=== PATIENT | male | born 1935 | race African-American/Black ===

== ENCOUNTER 2016-08-23 06:13 | Day surgery (SDC) | payer MEDICARE, OTHER ==
--- NOTE | ~2016-08-23 | EGD ---
EGD REPORT [facility] [address] [place] [address] NAME: TAMMY REYES : [birth year] STATUS : REG [facility]#: [id number] AGE: 81 ADM/REG DATE : 08/23/16 MR#: [id number] REPORT SERV DATE: 08/23/16 DICTATED BY: RICCO MATHEW DATE: 08/23/16 REPORT STATUS : Draft [facility] DATE: 08/23/16 Endoscopy Center Patient Name: Tammy Reyes Date of : 1935 Attending MD: RICCO MATHEW MD Procedure Date No Time: 08/23/2016 Procedure: Colonoscopy Indications: Heme positive stool, Iron deficiency anemia secondary to chronic blood loss, Follow-up for history of adenomatous polyps in the colon Referring MD: LES KAUFFMAN MD, NEISHA GODOY Medicines: Propofol per Anesthesia Complications: No immediate complications. Estimated blood loss: None. Procedure: Pre-Anesthesia Assessment: - After reviewing the risks and benefits, the patient was deemed in satisfactory condition to undergo the procedure. - Prior to the procedure, a History and Physical was performed, and patient medications and allergies were reviewed. The patient's tolerance of previous anesthesia was also reviewed. The risks and benefits of the procedure and the sedation options and risks were discussed with the patient. All questions were answered, and informed consent was obtained. Prior Anticoagulants: The patient has taken no previous anticoagulant or antiplatelet agents. ASA Grade Assessment: IV - A patient with severe systemic disease that is a constant threat to life. After reviewing the risks and benefits, the patient was deemed in satisfactory condition to undergo the procedure. After I obtained informed consent, the scope was passed under direct vision. Throughout the procedure, the patient's blood pressure, pulse, and oxygen saturations were monitored continuously. The CF [id number] was introduced through the anus and advanced to the cecum, identified by appendiceal orifice and ileocecal valve. The colonoscopy was performed with difficulty due to poor bowel prep with stool present. Successful completion of the procedure was aided by lavage. The ileocecal valve and appendiceal orifice were photographed. The patient tolerated the procedure well. The quality of the bowel preparation was poor. The bowel preparation used was polyethylene glycol (PEG). Scope withdrawal time was 6 minutes. EGD REPORT [place] [id number] [place]. [address] NAME: TAMMY REYES : [birth year] STATUS : REG [facility]#: [id number] AGE: 81 ADM/REG DATE : 08/23/16 MR#: [id number] REPORT SERV DATE: 08/23/16 DICTATED BY: RICCO MATHEW DATE: 08/23/16 REPORT STATUS : Draft TRANSCRIBED BY: [employer] DATE: 08/23/16 Findings: The perianal and digital rectal examinations were normal. Pertinent negatives include normal sphincter tone. Non-bleeding internal hemorrhoids were found during retroflexion and were medium-sized and Grade I (internal hemorrhoids that do not prolapse). Multiple small-mouthed diverticula were found in the sigmoid colon, in the descending colon and in the transverse colon. The exam was otherwise without abnormality. Impression: - Preparation of the colon was poor. - Non-bleeding internal hemorrhoids. - Moderate diverticulosis in the sigmoid colon, in the descending colon and in the transverse colon. - The examination was otherwise normal. - Opioid-induced constipation. Recommendation: - Discharge patient to home (ambulatory). - Return to previous diet. - Continue present medications. - No further routine surveillance colonoscopy due to advanced age. - Patient has a contact number available for emergencies. The signs and symptoms of potential delayed complications were discussed with the patient. Return to normal activities tomorrow. Written discharge instructions were provided to the patient. Procedure Code(s): --- Professional --- 65443, Colonoscopy, flexible, proximal to splenic flexure; diagnostic, with or without collection of specimen(s) by brushing or washing, with or without colon decompression (separate procedure) Diagnosis Code(s): --- Professional --- K64.0, First degree hemorrhoids K57.30, Diverticulosis of large intestine without perforation or abscess without bleeding R19.5, Other fecal abnormalities D50.0, Iron deficiency anemia secondary to blood loss (chronic) Z86.010, Personal history of colonic polyps CPT copyright 2013 [employer]. All rights reserved. The codes documented in this report are preliminary and upon precise winder review may EGD REPORT [facility] [address] [place]. [address] NAME: TAMMY REYES : [birth year] STATUS : REG [facility]#: [id number] AGE: 81 ADM/REG DATE : 08/23/16 MR#: [id number] REPORT SERV DATE: 08/23/16 DICTATED BY: RICCO MATHEW. DATE: 08/23/16 REPORT STATUS : Draft TRANSCRIBED BY: [employer] DATE: 08/23/16 be revised to meet current compliance requirements. RICCO MATHEW MD 08/23/2016 8:38 AM This report has been signed electronically. Number of Addenda: 0 Note Initiated On: 08/23/2016 7:51 AM Scope Withdrawal Time 0 hours 6 minutes 15 seconds [address] [place] [address]
--- NOTE | ~2016-08-23 | EGD ---
EGD REPORT [facility] [address] [place]. [address] NAME: TAMMY REYES : [birth year] STATUS : REG [facility]#: [id number] AGE: 81 ADM/REG DATE : 08/23/16 MR#: [id number] REPORT SERV DATE: 08/23/16 DICTATED BY: RICCO MATHEW DATE: 08/23/16 REPORT STATUS : Draft [facility] DATE: 08/23/16 Endoscopy Center Patient Name: Tammy Reyes Date of : 1935 Attending MD: RICCO MATHEW MD Procedure Date No Time: 08/23/2016 Procedure: Upper GI endoscopy Indications: Iron deficiency anemia secondary to chronic blood loss, Gastro-esophageal reflux disease, Heme positive stool Referring MD: LES KAUFFMAN MD, NEISHA GODOY Medicines: Propofol per Anesthesia Complications: No immediate complications. Estimated blood loss: None. Procedure: Pre-Anesthesia Assessment: - After reviewing the risks and benefits, the patient was deemed in satisfactory condition to undergo the procedure. - Prior to the procedure, a History and Physical was performed, and patient medications and allergies were reviewed. The patient's tolerance of previous anesthesia was also reviewed. The risks and benefits of the procedure and the sedation options and risks were discussed with the patient. All questions were answered, and informed consent was obtained. Prior Anticoagulants: The patient has taken no previous anticoagulant or antiplatelet agents. ASA Grade Assessment: IV - A patient with severe systemic disease that is a constant threat to life. After reviewing the risks and benefits, the patient was deemed in satisfactory condition to undergo the procedure. After obtaining informed consent, the endoscope was passed under direct vision. Throughout the procedure, the patient's blood pressure, pulse, and oxygen saturations were monitored continuously. The GIF [id number] was introduced through the mouth, and advanced to the jejunum. The upper GI endoscopy was accomplished without difficulty. The patient tolerated the procedure well. Findings: The examined esophagus was normal. Diffuse severe inflammation characterized by congestion (edema), erythema, bile staining, and granularity was found in the gastric antrum. Biopsies were taken with a cold forceps for histology. Estimated blood loss: none. The gastroesophageal junction (on retroflexion) was normal. EGD REPORT [address] [address] NAME: TAMMY REYES : [birth year] STATUS : REG [facility] PAT#: [id number] AGE: 81 ADM/REG DATE : 08/23/16 MR#: [id number] REPORT SERV DATE: 08/23/16 DICTATED BY: RICCO MATHEW DATE: 08/23/16 REPORT STATUS : Draft TRANSCRIBED BY: [employer] DATE: 08/23/16 The examined duodenum was normal. Biopsies were taken with a cold forceps for histology. Estimated blood loss: none. Impression: - Normal esophagus. - Chronic bile gastritis. Biopsied. - Normal gastroesophageal junction. - Normal examined duodenum. Biopsied. - GERD. Recommendation: - Discharge patient to home (ambulatory). - Return to previous diet. - Continue present medications including Prilosec (omeprazole) 40 mg daily before breakfast. - Await pathology results. - Perform a colonoscopy today. - Patient has a contact number available for emergencies. The signs and symptoms of potential delayed complications were discussed with the patient. Return to normal activities tomorrow. Written discharge instructions were provided to the patient. Procedure Code(s): --- Professional --- 22015, Esophagogastroduodenoscopy, flexible, transoral; with biopsy, single or multiple Diagnosis Code(s): --- Professional --- K29.50, Unspecified chronic gastritis without bleeding K29.60, Other gastritis without bleeding K21.9, Gastro-esophageal reflux disease without esophagitis D50.0, Iron deficiency anemia secondary to blood loss (chronic) R19.5, Other fecal abnormalities CPT copyright 2013 [employer]. All rights reserved. The codes documented in this report are preliminary and upon retread supervisor review may be revised to meet current compliance requirements. RICCO MATHEW MD 08/23/2016 8:17 AM This report has been signed electronically. Number of Addenda: 0 Note Initiated On: 08/23/2016 7:54 AM EGD REPORT [facility] [address] [place] [address] NAME: TAMMY REYES : [birth year] STATUS : REG [facility]#: [id number] AGE: 81 ADM/REG DATE : 08/23/16 MR#: [id number] REPORT SERV DATE: 08/23/16 DICTATED BY: RICCO MATHEW DATE: 08/23/16 REPORT STATUS : Draft TRANSCRIBED BY: [employer] DATE: 08/23/16 Scope Withdrawal Time 0 hours 0 minutes 0 seconds [address] [place] [address]
[~2016-08-23 06:13] MED LIST: ALPHAGAN OPH; ALPHAGAN P0.1 % OP; ALPHAGAN P0.1 % OPH; AMITIZA24 PO; APRES25 PO; ASAB PO; AUG500 PO; BIDIL20/37 PO; BRIMONIDINE0.2 % OP; BRIMONIDINE0.2 % OPH; BUDEPRION XL150 MG PO; BUDEPRION100 MG PO; BUM1 PO; BUM2 PO; BUPROBAN150 MG PO; CAT1 PO; CATAPRES3 TOP; CHELATED IRON PO; CHOLECALCIFEROL 1000 MG; COMBIVENT INH; COMBIVENT RESPIM4 GM INH; COREG12 PO; COREG25 PO; COREG6 PO; COSOPT OP; COSOPT OPH; COZ50 PO; COZAAR100 MG PO; DCN100 PO; DIALYVITE800 MG PO; DIOV160 PO; DORZOL/TIMOL1 ML OP; DORZOLAMIDE2 % OPH; DSS PO; DURA12 TOP; ENDOCET1 TA3 PO; EPOGEN SC; FERROUS SULF325 M1 PO; FLEX PO; HALF81 PO; HYDROCHLOROT25 MG PO; INSNOVR; IV ANTIBIOTIC; K-TABS10 MEQ PO; KLOR-CON 1010 MEQ PO; KLOR-CON M2020 MEQ PO; L40 PO; L80 PO; LANTUS SC; LEVAQUIN5T PO; LIDO5OINT TOP; LIOR10 PO; LIPITOR10 PO; LISINOPRIL40 MG PO; LORTAB10 PO; MAGOX4 PO; MEG40 PO; MEGACEUDL PO; MSCONT15 PO; MSCONT60 PO; MSCONTIN PO; NORV10 PO; NORV5 PO; NOVOLOG; NOVOLOG SC; NOVOPEN SC; OMNICEF300 PO; ORAMORPH SR15 MG PO; P5 PO; PCET PO; PERCOCET1 TA4 PO; PR12.5 PO; PR25 PO; PRAVACHOL40 MG PO; PREV30 PO; PRILO PO; PRILOSEC40 MG PO; PRIN10 PO; PRIN20 PO; PROTONIX PO; PROZAC; PROZAC PO; PROZAC40 MG PO; REM15 PO; SARAFEM20 M1 PO; SENSIPAR30 M1 PO; SEROQUEL XR300 MG PO; SEROQUEL300 MG PO; SPIRO25 PO; TESS PO; TRANSSCOP T; TUMSROLL PO; UROXATRAL PO; VICODINTAB PO; VITAMIN D1000 UNI1 PO; WELL100 PO; WELLSR100 PO; WELLSR150 PO; XALAT OP; XALAT OPH; ZAROX2.5B PO; ZEMPLAR1 PO; ZESTRIL20 MG PO; ZITH250 PO; ZOCOR20 PO; ZOFRAN4 PO; [UNRECOGNIZED DRUG - REMARK]
[2016-08-23 06:50] LABS: BUN (BLOOD UREA NITROGEN) 41 MG/DL (6-23); CALCIUM, SERUM 8.9 MG/DL (8.5-10.4); CHLORIDE, SERUM 100 MMOL/L (96-112); CO2 (CARBON DIOXIDE) 28 MMOL/L (24-34); CREATININE 6.86 MG/DL (0.70-1.30); GFR AFRICAN AMERICAN 8 ML/MIN (>=60); GFR NON AFRICAN AMERICAN 7 ML/MIN (>=60); GLUCOSE, SERUM 111 MG/DL (60-99); POTASSIUM, SERUM 3.9 MMOL/L (3.5-5.3); SODIUM, SERUM 140 MMOL/L (135-148)
[2016-09-24] MEDS ORDERED: MOVANTIK25 MG PO (12:27)
[2016-09-24] MEDS ORDERED: MAGOX4 PO (12:27)
[2016-09-24] MEDS ORDERED: SEROQUEL300 MG PO (12:28)
[2016-09-24] MEDS ORDERED: WELL100 PO (12:29)
[2016-09-24] MEDS ORDERED: DURA12 TOP (12:30)
[2016-09-24] MEDS ORDERED: PROZAC PO (12:30)
[2016-09-24] MEDS ORDERED: PRIN10 PO (12:34)
[2016-09-24] MEDS ORDERED: PERCOCET 10/3251 TAB PO (12:34)
[2016-09-24] MEDS ORDERED: DIALYVITE PO (12:35)
[2016-09-24] MEDS ORDERED: HALF81 PO (12:35)
[2016-09-24] MEDS ORDERED: REM15 PO (12:36)
[2016-09-24] MEDS ORDERED: AMITIZA24 PO (12:36)
[2016-09-24] MEDS ORDERED: BRIMONIDINE0.2 % OPH (12:37)
[2016-09-24] MEDS ORDERED: COSOPT OPH (12:39)
[2016-09-24] MEDS ORDERED: SENSIPAR30 M1 PO (12:51)
[2016-12-22] MEDS ORDERED: PRILOSEC40 MG PO (15:15)
[2016-12-22] MEDS ORDERED: AVAPRO75 PO (15:15)
[2016-12-22] MEDS ORDERED: XALAT OPH (15:19)
== END 2016-08-23 23:59 | disposition home or self-care (01) ==
LOC: DMU 06:13
PROVIDERS: Anesthesiology; Internal Medicine Gastroenterology
PROC: 0DB68ZX Excision of Stomach, Via Natural or Artificial Opening Endoscopic, Diagnostic (ICD-10-PCS; 2016-08-23)
PROC: 0DJD8ZZ Inspection of Lower Intestinal Tract, Via Natural or Artificial Opening Endoscopic (ICD-10-PCS; principal; 2016-08-23 08:00)
PROC: 0DB98ZX Excision of Duodenum, Via Natural or Artificial Opening Endoscopic, Diagnostic (ICD-10-PCS; 2016-08-23 08:00)
DX: K64.0 First degree hemorrhoids (principal); K57.30 Diverticulosis of large intestine without perforation or abscess without bleeding; R19.5 Other fecal abnormalities; K29.50 Unspecified chronic gastritis without bleeding; G89.29 Other chronic pain; K21.9 Gastro-esophageal reflux disease without esophagitis; G47.30 Sleep apnea, unspecified; D50.0 Iron deficiency anemia secondary to blood loss (chronic); I25.10 Atherosclerotic heart disease of native coronary artery without angina pectoris; K29.60 Other gastritis without bleeding; E11.22 Type 2 diabetes mellitus with diabetic chronic kidney disease; I12.0 Hypertensive chronic kidney disease with stage 5 chronic kidney disease or end stage renal disease; N18.6 End stage renal disease; Z99.81 Dependence on supplemental oxygen; Z86.010 Personal history of colon polyps; Z87.01 Personal history of pneumonia (recurrent); Z79.891 Long term (current) use of opiate analgesic; Z79.899 Other long term (current) drug therapy; Z79.4 Long term (current) use of insulin; Z79.82 Long term (current) use of aspirin
CPT/HCPCS: 80048; 88305